=== PATIENT | female | born 1975 | race Caucasian/White ===

== ENCOUNTER 2016-08-11 16:28 | Emergency (ER) | payer OTHER ==
[2016-08-11 16:32] VITALS: BP 128/86; PULSE 87; TEMP 98.7; BMI 22.6
--- NOTE | 2016-08-11 16:40 | PDOC ---
History of Present Illness - General Chief Complaint: Ear Problem Stated Complaint: HEADACHE Time Seen by Provider: 08/11/16 16:35 History Source: Patient Exam Limitations: No Limitations - History of Present Illness Initial Comments: 08/11/16 18:10 Chief complaint: Ear pain Patient is a 41-year-old female with no significant medical history complaining of right ear pain, you going down to her throat, started today, sharp in nature. No pattern. Denies trauma, does not use Q-tips, does not have fever, difficulty swallowing. Patient does not have a history of this before GENERAL/CONSTITUTIONAL: No fever, weakness. dizziness HEAD, EYES, EARS, NOSE AND THROAT: No change in vision. + ear pain, no discharge. +sore throat. CARDIOVASCULAR: No chest pain RESPIRATORY: No shortness of breath or cough GASTROINTESTINAL: No pain, nausea, vomiting, diarrhea or constipation GENITOURINARY: No dysuria MUSCULOSKELETAL: No neck or back pain SKIN: No rash NEUROLOGIC: No headache, vertigo, loss of consciousness, or loss of sensation. GENERAL: The patient is awake, alert, and fully oriented, in no acute distress. HEAD: Normal with no signs of trauma. EYES: Pupils equal, round and reactive to light, sclera anicteric, conjunctiva clear. ENT: pharynx: no erythema, no exudate, uvula midline Ears: Right ear, clear, TMs normal, left ear clear, questionable minimal erythema to the superior aspect of the TM, no bulging or NECK: supple CHEST: clear, nontender, rr ABD: soft, nontender EXTREMITIES: Normal range of motion, no edema. NEUROLOGICAL: Normal speech, normal gait. SKIN: Warm, Dry Past History - Past Medical History Allergies/Adverse Reactions: Allergies Allergy/AdvReac Type Severity Reaction Status Date / Time No Known Allergies Allergy Verified 08/11/16 16:32 Home Medications: Ambulatory Orders Amoxicillin - [Amoxicillin 875mg Tablet -] 875 mg PO BID #14 tab 08/11/16 Thyroid Disease: Yes - Psycho/Social/Smoking Cessation Hx Anxiety: No Suicidal Ideation: No Smoking History: Never smoked Hx Alcohol Use: Yes (SOCIAL) Drug/Substance Use Hx: No Substance Use Type: None *Physical Exam - Vital Signs Last Vital Signs Temp Pulse Resp BP Pulse Ox 98.7 F 87 20 128/86 99 08/11/16 16:29 08/11/16 16:29 08/11/16 16:29 08/11/16 16:29 08/11/16 16:29 Medical Decision Making - Medical Decision Making 08/11/16 18:12 Ear pain, sore throat, negative exam of throat, questionable minimal erythema to the superior aspect of the TM, discussed with patient that it's not clear what is causing her pain but given the findings and the story will give her antibiotic and patient will need to follow-up with ENT doctor to get further evaluation. *DC/Admit/Observation/Transfer Diagnosis at time of Disposition: Left ear pain - Discharge Dispostion Admit: No - Prescriptions Prescriptions: Amoxicillin - [Amoxicillin 875mg Tablet -] 875 mg PO BID #14 tab - Referrals Referrals: Xander Figueroa MD [Staff Physician] - - Patient Instructions Additional Instructions: As discussed you can start you on an antibiotic and Motrin given your symptoms but is very important for you to follow-up with the learning support specialist as it is not clear what is causing her pain Return to the ER if unable swallow, or drooling
[2016-08-11] MEDS ORDERED: IBUPROFEN 600 MG TABLET (FP) PO ONE (17:01)
== END 2016-08-11 17:19 | disposition home or self-care (01) ==
LOC: JERFT 16:28
DX: H92.02 Otalgia, left ear (principal)
CPT/HCPCS: 99281-25